=== PATIENT | female | born 1935 | race African-American/Black ===

== ENCOUNTER 2019-05-11 07:42 | Inpatient (IN) | payer MEDICARE ==
[~2019-05-11] VITALS: Ht 165.1 cm; Wt 61.0 kg
[2019-05-11 09:11] LABS: Basophils # (auto) 0 uL; Eosinophils # (auto) 0.1 uL; Hemoglobin 14.7 g/dL (12.2-16.2)
[2019-05-11 09:13] LABS: Basophils % (auto) 0.5 % (0.0-2.0); Hematocrit 44.7 % (36.0-46.0); Lymphocytes # (auto) 1.2 uL; Lymphocytes % (auto) 18.3 % (10.0-50.0); Mean Corpuscular Hemoglobin 23.7 pg (28.0-32.0); Mean Corpuscular Hgb Conc. 32.8 g/dL (32.0-36.0); Mean Corpuscular Volume 72.4 fL (80.0-100.0); Monocytes # (auto) 0.4 uL; Monocytes % (auto) 5.5 % (0.0-12.0); Neutrophils # (auto) 4.8 uL; Neutrophils % (auto) 74.7 % (37.0-80.0); Nucleated Red Blood Cells % 0.1 %; Platelet Count (auto) 109 10^3/uL (140-450); Red Blood Cells 6.18 10^6/uL (4.0-5.20); Red Cell Distribution Width 16.4 % (11.8-14.3); White Blood Cell 6.5 10^3/uL (4.4-10.8)
[2019-05-11 09:30] LABS: Calcium 9.4 mg/dL (8.5-10.1); Potassium 3.3 mmol/L (3.5-5.1)
[2019-05-11 09:34] LABS: INR 1.04 (0.9-1.15); Partial Thromboplastin Time 27.1 sec (23.64-32.05)
[2019-05-11 09:38] LABS: BUN/Creatinine Ratio 16.3; Bilirubin, Total 1.2 mg/dL (0.2-1.0); Total Protein 7.6 g/dL (6.4-8.2)
[2019-05-11 09:45] LABS: Urine Bacteria NONE SEEN /hpf (None Seen); Urine Blood Negative /uL (Negative); Urine Specific Gravity 1.012 (1.001-1.035); Urine WBC 1 /hpf (0 - 5)
[2019-05-11 12:22] LABS: Magnesium 2.8 mg/dL (1.6-2.6)
[2019-05-11] MEDS ORDERED: POTASSIUM CHL 20 Meq TABLET PO ONE (13:15)
[2019-05-11] MEDS ORDERED: ASPirin-EC 81 mg tab PO ONE (13:15)
[2019-05-11] MEDS ORDERED: NITROGLYCERIN 0.4 MG SL TAB SL PRN (14:15)
[2019-05-11] MEDS ORDERED: MORPHINE SULF INJ 2 MG/ML SYRINGE 1ML IV PRN ×2 (14:15)
[2019-05-11] MEDS ORDERED: ACETAMINOPHEN 500 MG TAB PO PRN (14:15)
[2019-05-11] MEDS ORDERED: ONDANSETRON HCL 4 MG/2 ML VIAL IV PRN (14:15)
[2019-05-11] MEDS: METOCLOPRAMIDE HCL 10 MG TAB PO SCH ×2 (15:24→21:57)
[2019-05-11] MEDS: SODIUM CHLORIDE 0.9% 1,000 ML IV SCH (15:24)
[2019-05-11] MEDS: cefTRIAXone 1GM/50ML D5W 50 ML IV SCH (15:24)
[2019-05-11 16:00] VITALS: BP 159/80
--- NOTE | 2019-05-11 16:00 | NUR ---
MS admit from [facility] admitted to tele/MS after SBAR received. Patient oriented to ORALIA SHAIKH RN primary RN, unit, room, bed, and unit policies regarding patient care and visiting hours. Patient is on room air, respirations even and unlabored. Patient denies pain at this time. Reviewed plan of care with patient, patient verbalized understanding. Bed in low and locked position, call light within reach. Will continue to monitor Q1 hour and PRN.
--- NOTE | 2019-05-11 16:20 | NUR ---
Patient ambulated Patient ambulated to restroom, gait steady. Patient tolerated well. Will continue to monitor Q1 hour and PRN.
--- NOTE | 2019-05-11 16:50 | NUR ---
POM Patients medications taken down to pharmacy. Addendum: 05/11/19 at 1849 by ORALIA SHAIKH RN RN Patient states these are not her current home medications, states she "grabbed the wrong ones." Instructed patient to have family bring in current list of medications. Patient verbalized understanding.
[2019-05-11 17:00] VITALS: BP 159/80
[2019-05-11] MEDS: DOCUSATE SOD 100 MG CAP PO PRN (18:55)
--- NOTE | 2019-05-11 19:10 | NUR ---
Closing Note Report given to geological engineer RN. No signs or symptoms if distress noted at this time.
--- NOTE | 2019-05-11 19:30 | NUR ---
Opening Shift Note Assumed care of patient, awake and alert. No S/S of distress/SOB or pain. Insructed on POC and to callfor assist PRN, will continue to monitor for changes Q1hr and PRN. Witnessed patient ambulating to bathroom and back to bed independently with steady gait. Fall and safety precautions in place. Call light within reach.
--- NOTE | 2019-05-11 21:20 | NUR ---
HOSPITALIST Spoke with on-call hospitalist, Dr. Restrepo, regarding patient's request for neuropathy medication. New orders received, will input and carry out
[2019-05-11] MEDS: DONEPEZIL HYDROCHLORIDE 5 MG TAB PO SCH (21:56)
[2019-05-11] MEDS: PREGABALIN CAPSULE 75 MG CAP PO SCH (21:56)
[2019-05-11] MEDS: METOPROLOL TARTRATE 50 MG TAB PO SCH (21:57)
[2019-05-11 22:15] VITALS: BP 141/74
[2019-05-12] MEDS: SODIUM CHLORIDE 0.9% 1,000 ML IV SCH ×3 (03:09→21:44)
[2019-05-12 05:30] VITALS: BP 148/74
[2019-05-12 05:37] LABS: Basophils # (auto) 0.1 uL; Eosinophils # (auto) 0.2 uL; Monocytes # (auto) 0.5 uL
[2019-05-12] MEDS: METOCLOPRAMIDE HCL 10 MG TAB PO SCH ×3 (05:46→21:44)
[2019-05-12 05:49] LABS: Basophils % (auto) 0.6 % (0.0-2.0); Eosinophils % (auto) 2.4 % (0.0-7.0); Lymphocytes # (auto) 1.7 uL; Lymphocytes % (auto) 21.5 % (10.0-50.0); Mean Corpuscular Hemoglobin 23.8 pg (28.0-32.0); Mean Corpuscular Hgb Conc. 32.4 g/dL (32.0-36.0); Mean Corpuscular Volume 73.5 fL (80.0-100.0); Monocytes % (auto) 6.3 % (0.0-12.0); Neutrophils # (auto) 5.6 uL; Neutrophils % (auto) 69.2 % (37.0-80.0); Nucleated Red Blood Cells % 0.2 %; Platelet Count (auto) 112 10^3/uL (140-450); Red Blood Cells 5.86 10^6/uL (4.0-5.20); Red Cell Distribution Width 16.1 % (11.8-14.3); White Blood Cell 8.1 10^3/uL (4.4-10.8)
[2019-05-12 05:59] LABS: BUN/Creatinine Ratio 12.2; Calcium 8.9 mg/dL (8.5-10.1)
--- NOTE | 2019-05-12 07:17 | NUR ---
OPENING SHIFT NOTE Assumed care patient comfortably resting in bed, AOx4. No S/S of distress or SOB noted. Patient verbalizes pain 3/10, no pain medication needed per patient. Bed in low position, locked, side rails x2 up, call light within reach. Patient updated on POC for the day and to call for assistance as needed, patient verbalized understanding.
[2019-05-12] MEDS: cefTRIAXone 1GM/50ML D5W 50 ML IV SCH (08:49)
[2019-05-12] MEDS: DOCUSATE SOD 100 MG CAP PO PRN ×2 (08:49→22:09)
[2019-05-12 09:00] VITALS: BP 154/78
[2019-05-12] MEDS: PREGABALIN CAPSULE 75 MG CAP PO SCH ×2 (09:50→21:44)
[2019-05-12] MEDS: METOPROLOL TARTRATE 50 MG TAB PO SCH ×2 (09:50→22:00)
--- NOTE | 2019-05-12 11:35 | NUR ---
MEDICATION RECONCILIATION Patient unable to provide list of home medications. Per patient, she lives home alone and has no one available that can help bring her medications in.
[2019-05-12 13:00] VITALS: BP 171/71
[2019-05-12] MEDS: cloNIDine HCL 0.1 MG TAB PO PRN ×2 (14:14→22:09)
[2019-05-12 17:00] VITALS: BP 122/71
[2019-05-12] MEDS: LACTULOSE 20Gm/30ML SOLN PO PRN (17:15)
[2019-05-12] MEDS ORDERED: PANT40TA2 PO (18:28)
[2019-05-12] MEDS ORDERED: LACT10SO70 PO (18:28)
[2019-05-12] MEDS ORDERED: AML5T PO (18:28)
[2019-05-12] MEDS ORDERED: DOCU-94 PO (18:28)
[2019-05-12] MEDS ORDERED: DOCU240C3 PO (18:28)
[2019-05-12] MEDS ORDERED: PREG50CA PO (18:28)
[2019-05-12] MEDS ORDERED: METO-169 PO (18:28)
--- NOTE | 2019-05-12 19:30 | NUR ---
Opening Shift Note Assumed care of patient, awake and alert. No S/S of distress/SOB or pain. Insructed on POC and to callfor assist PRN, will continue to monitor for changes Q1hr and PRN. Fall and safety precautions in place. Call light within reach. Patient informed of MD order for urine culture. Specimen cup at bedside, patient verbalized understanding and agreed to call when sample is ready.
--- NOTE | 2019-05-12 20:45 | NUR ---
URINE SAMPLE Urine culture collected per MD order and sent to lab via bullet
[2019-05-12] MEDS: DONEPEZIL HYDROCHLORIDE 5 MG TAB PO SCH (21:44)
[2019-05-12 21:59] VITALS: BP 165/72
[2019-05-13 05:00] VITALS: BP 130/64
[2019-05-13] MEDS: LACTULOSE 20Gm/30ML SOLN PO PRN (05:47)
[2019-05-13] MEDS: METOCLOPRAMIDE HCL 10 MG TAB PO SCH ×3 (05:47→20:51)
[2019-05-13] MEDS: SODIUM CHLORIDE 0.9% 1,000 ML IV SCH ×2 (05:48→16:15)
[2019-05-13 05:59] LABS: Basophils # (auto) 0.1 uL; Eosinophils # (auto) 0.2 uL; Hemoglobin 12.7 g/dL (12.2-16.2); Lymphocytes # (auto) 1.3 uL; Monocytes # (auto) 0.4 uL; Nucleated Red Blood Cells % 0.1 %
[2019-05-13 06:01] LABS: Eosinophils % (auto) 3.7 % (0.0-7.0); Hematocrit 38.8 % (36.0-46.0); Lymphocytes % (auto) 21.2 % (10.0-50.0); Mean Corpuscular Hgb Conc. 32.6 g/dL (32.0-36.0); Mean Corpuscular Volume 73.5 fL (80.0-100.0); Monocytes % (auto) 7.1 % (0.0-12.0); Neutrophils # (auto) 4.2 uL; Platelet Count (auto) 100 10^3/uL (140-450); Red Blood Cells 5.28 10^6/uL (4.0-5.20); Red Cell Distribution Width 16.4 % (11.8-14.3); White Blood Cell 6.2 10^3/uL (4.4-10.8)
[2019-05-13 06:27] LABS: Calcium 8.5 mg/dL (8.5-10.1); Potassium 3.6 mmol/L (3.5-5.1)
[2019-05-13 06:29] LABS: BUN/Creatinine Ratio 13.4
--- NOTE | 2019-05-13 07:30 | NUR ---
OPENING SHIFT NOTE Assumed care patient comfortably sleeping in bed. Bed in low position, locked, call light within reach, side rails x2 up. No S/S of distress/SOB/ or pain noted at this time. White board updated with POC for the day. Will continue care.
[2019-05-13 08:39] VITALS: BP 155/72
[2019-05-13] MEDS: cefTRIAXone 1GM/50ML D5W 50 ML IV SCH (09:11)
[2019-05-13] MEDS: METOPROLOL TARTRATE 50 MG TAB PO SCH ×2 (09:12→22:00)
[2019-05-13] MEDS: PREGABALIN CAPSULE 75 MG CAP PO SCH ×2 (09:12→20:51)
[2019-05-13 13:00] VITALS: BP 153/63
[2019-05-13] MEDS ORDERED: LACTULOSE 20Gm/30ML SOLN PO ONE (14:00)
--- NOTE | 2019-05-13 15:22 | NUR ---
Assessment Pt is an 83 yr old alert and oriented female. Pt lives alone and named her son, Omar, as her emergency contact at [phone]. Pt uses no DME, and is ambulatory and independent with ADL's. Pt's primary is Dr. Mai, has AD, and gets income. 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 Pt will d/c home upon medical clearance with HH resumption. Pt is understanding and agreeable to d/c plan. No other needs assessed. Addendum: 05/13/19 at 1526 by ORLANDO LEMA Amended: Links added.
[2019-05-13] MEDS: HYOSCYAMINE SULF 0.125 MG ODT TAB PO PRN (15:42)
[2019-05-13 17:00] VITALS: BP 148/75
[2019-05-13 17:25] VITALS: BP 148/75
--- NOTE | 2019-05-13 19:30 | NUR ---
Opening Shift Note Assumed care of patient, awake and alert. No S/S of distress/SOB or pain. Insructed on POC and to callfor assist PRN, will continue to monitor for changes Q1hr and PRN. Fall and safety precautions in place. Call light within reach.
[2019-05-13] MEDS: DONEPEZIL HYDROCHLORIDE 5 MG TAB PO SCH (20:51)
[2019-05-13] MEDS: POLYETHYLENE GLYCOL 17 GM PWDR PO PRN (20:53)
[2019-05-13 22:00] VITALS: BP 147/76
[2019-05-14] MEDS: SODIUM CHLORIDE 0.9% 1,000 ML IV SCH ×3 (02:41→22:18)
[2019-05-14 05:07] VITALS: BP 140/77
[2019-05-14] MEDS: METOCLOPRAMIDE HCL 10 MG TAB PO SCH ×3 (05:43→21:58)
[2019-05-14] MEDS: HYDROcodone-ACET 5/325MG TAB PO PRN ×2 (05:49→11:46)
[2019-05-14 06:24] LABS: Basophils # (auto) 0.1 uL; Eosinophils # (auto) 0.2 uL; Lymphocytes # (auto) 1.2 uL; Monocytes # (auto) 0.4 uL; Neutrophils # (auto) 4.3 uL; Nucleated Red Blood Cells % 0.1 %; White Blood Cell 6.2 10^3/uL (4.4-10.8)
[2019-05-14 06:26] LABS: Basophils % (auto) 0.9 % (0.0-2.0); Eosinophils % (auto) 3.1 % (0.0-7.0); Hematocrit 38.9 % (36.0-46.0); Hemoglobin 12.5 g/dL (12.2-16.2); Lymphocytes % (auto) 19.9 % (10.0-50.0); Mean Corpuscular Hemoglobin 23.5 pg (28.0-32.0); Mean Corpuscular Hgb Conc. 32.2 g/dL (32.0-36.0); Mean Corpuscular Volume 73.1 fL (80.0-100.0); Neutrophils % (auto) 69.1 % (37.0-80.0); Platelet Count (auto) 89 10^3/uL (140-450); Red Blood Cells 5.32 10^6/uL (4.0-5.20); Red Cell Distribution Width 16.5 % (11.8-14.3)
[2019-05-14 06:37] LABS: Potassium 3.6 mmol/L (3.5-5.1)
[2019-05-14 06:43] LABS: BUN/Creatinine Ratio 12.5
[2019-05-14 06:44] LABS: Calcium 8.6 mg/dL (8.5-10.1)
--- NOTE | 2019-05-14 07:30 | NUR ---
Opening Shift Note Assumed care of patient, awake and alert. No S/S of distress/SOB or pain. Instructed on POC and to call for assist PRN, will continue to monitor for changes Q1hr and PRN.
[2019-05-14 08:54] VITALS: BP 143/72
[2019-05-14] MEDS: PREGABALIN CAPSULE 75 MG CAP PO SCH ×2 (09:43→21:56)
[2019-05-14] MEDS: cefTRIAXone 1GM/50ML D5W 50 ML IV SCH (09:43)
[2019-05-14] MEDS: METOPROLOL TARTRATE 50 MG TAB PO SCH ×2 (09:44→21:58)
--- NOTE | 2019-05-14 12:15 | NUR ---
DOCTOR PIRES AT BEDSIDE.
[2019-05-14 13:00] VITALS: BP 149/74
[2019-05-14] MEDS: cloNIDine HCL 0.1 MG TAB PO PRN (16:47)
[2019-05-14 16:57] VITALS: BP 178/82
--- NOTE | 2019-05-14 19:35 | NUR ---
Opening Shift Note Report received from day shift RN. Assumed care of patient, awake and A&O x4. No S/S of distress/SOB noted and patient denies pain at this time. Instructed on POC and to call for assist PRN, will continue to monitor for changes Q1hr and PRN. Bed locked and left in the lowest position. Call light within reach.
[2019-05-14] MEDS: DONEPEZIL HYDROCHLORIDE 5 MG TAB PO SCH (21:56)
[2019-05-14 22:00] VITALS: BP 138/71
[2019-05-14] MEDS: POLYETHYLENE GLYCOL 17 GM PWDR PO PRN (22:03)
[2019-05-15] MEDS: HYOSCYAMINE SULF 0.125 MG ODT TAB PO PRN (00:35)
[2019-05-15] MEDS: HYDROcodone-ACET 5/325MG TAB PO PRN (01:21)
[2019-05-15] MEDS: cloNIDine HCL 0.1 MG TAB PO PRN (04:47)
[2019-05-15 05:00] VITALS: BP 176/75
[2019-05-15 05:43] LABS: Basophils # (auto) 0 uL; Eosinophils # (auto) 0.2 uL; Hemoglobin 13.3 g/dL (12.2-16.2); Monocytes # (auto) 0.4 uL
[2019-05-15 05:48] LABS: Basophils % (auto) 0.8 % (0.0-2.0); Hematocrit 41.8 % (36.0-46.0); Lymphocytes # (auto) 1.6 uL; Lymphocytes % (auto) 26.4 % (10.0-50.0); Mean Corpuscular Hemoglobin 23.9 pg (28.0-32.0); Mean Corpuscular Hgb Conc. 31.9 g/dL (32.0-36.0); Mean Corpuscular Volume 74.9 fL (80.0-100.0); Monocytes % (auto) 6.7 % (0.0-12.0); Neutrophils # (auto) 3.8 uL; Neutrophils % (auto) 63.1 % (37.0-80.0); Nucleated Red Blood Cells % 0.1 %; Platelet Count (auto) 94 10^3/uL (140-450); Red Blood Cells 5.59 10^6/uL (4.0-5.20); Red Cell Distribution Width 16.8 % (11.8-14.3); White Blood Cell 6.1 10^3/uL (4.4-10.8)
[2019-05-15 06:08] LABS: Potassium 3.7 mmol/L (3.5-5.1)
[2019-05-15 06:14] LABS: BUN/Creatinine Ratio 13.9; Calcium 9.1 mg/dL (8.5-10.1)
[2019-05-15] MEDS: METOCLOPRAMIDE HCL 10 MG TAB PO SCH ×3 (06:14→21:41)
[2019-05-15 08:00] VITALS: BP 144/66
[2019-05-15 09:33] VITALS: BP 147/71
[2019-05-15] MEDS: METOPROLOL TARTRATE 50 MG TAB PO SCH ×2 (10:00→21:43)
[2019-05-15] MEDS: cefTRIAXone 1GM/50ML D5W 50 ML IV SCH (10:02)
[2019-05-15] MEDS: PREGABALIN CAPSULE 75 MG CAP PO SCH ×2 (10:02→21:40)
[2019-05-15] MEDS: SODIUM CHLORIDE 0.9% 1,000 ML IV SCH ×2 (10:05→17:35)
--- NOTE | 2019-05-15 11:00 | NUR ---
PATIENT AMBULATED PATIENT REQUESTED TO AMBULATE DOWN HALLWAY. PATIENT AMBULATING WITHOUT COMPLAINT OR SIGNS OF WEAKNESS AND DISTRESS. WILL CONTINUE TO MONITOR AND OBSERVE.
--- NOTE | 2019-05-15 11:24 | NUR ---
PATIENT RETURNED TO BED PATIENT RETURNED TO BED. SITTING UP A&OX4. RESPIRATIONS EVEN AND NON-LABORED WITHOUT COMPLAINT OR SIGNS OF DISTRESS. BED IS IN LOWEST POSITION, LOCKED, WITH RAILS UP X2. WILL CONTINUE TO MONITOR.
[2019-05-15 14:43] VITALS: BP 143/83
--- NOTE | 2019-05-15 15:07 | NUR ---
Nutrition Assessment Notes Please refer to link for full assessment notes. Est energy needs: 8020-8675 kcals (23-25 kcal/kgBW) d/t pt age Est protein needs: 62-68 gms/day (1.0-1.1 gm/kgBW) d/t pt age Will continue to monitor and reassess prn. Addendum: 05/15/19 at [address] Amended: Links added.
[2019-05-15 16:51] VITALS: BP 155/75
--- NOTE | 2019-05-15 18:41 | NUR ---
SPOKE TO PATIENT ABOUT ENEMA THAT WAS ORDERED FOR CONSTIPATION. PATIENT STATED THAT SHE DOES NOT WANT TO POOP ALL NIGHT LONG AND WOULD RATHER HAVE IT DONE IN THE MORNING. EDUCATION PROVIDED. WILL CONTINUE TO MONITOR.
[2019-05-15] MEDS: PANTOPRAZOLE 40 MG TAB PO SCH (18:44)
[2019-05-15] MEDS: DONEPEZIL HYDROCHLORIDE 5 MG TAB PO SCH (21:40)
[2019-05-15 22:00] VITALS: BP 156/86
[2019-05-16] MEDS: HYDROcodone-ACET 5/325MG TAB PO PRN (01:16)
[2019-05-16] MEDS: SODIUM CHLORIDE 0.9% 1,000 ML IV SCH ×2 (04:15→14:15)
[2019-05-16] MEDS: cloNIDine HCL 0.1 MG TAB PO PRN (04:53)
[2019-05-16 05:00] VITALS: BP 165/85
[2019-05-16] MEDS: METOCLOPRAMIDE HCL 10 MG TAB PO SCH ×2 (05:49→14:00)
[2019-05-16 07:04] LABS: Eosinophils # (auto) 0.2 uL; Lymphocytes # (auto) 1.4 uL; Monocytes # (auto) 0.4 uL; Neutrophils # (auto) 3.9 uL
[2019-05-16 07:06] LABS: Basophils # (auto) 0 uL; Basophils % (auto) 0.7 % (0.0-2.0); Eosinophils % (auto) 2.9 % (0.0-7.0); Hematocrit 38.8 % (36.0-46.0); Hemoglobin 12.8 g/dL (12.2-16.2); Lymphocytes % (auto) 23.4 % (10.0-50.0); Mean Corpuscular Hgb Conc. 33.1 g/dL (32.0-36.0); Mean Corpuscular Volume 72.3 fL (80.0-100.0); Nucleated Red Blood Cells % 0.2 %; Platelet Count (auto) 93 10^3/uL (140-450); Red Blood Cells 5.36 10^6/uL (4.0-5.20); Red Cell Distribution Width 16.4 % (11.8-14.3); White Blood Cell 5.9 10^3/uL (4.4-10.8)
[2019-05-16 07:08] LABS: INR 1.13 (0.9-1.15)
[2019-05-16 07:16] LABS: BUN/Creatinine Ratio 17.4; Potassium 3.7 mmol/L (3.5-5.1)
--- NOTE | 2019-05-16 07:30 | NUR ---
Received patient in bed, NS drip on hold because of elevated blood pressure as per report from assistant casino shift manager RN.
--- NOTE | 2019-05-16 08:10 | NUR ---
Patient is uncomfortable having the tap water enema ordered. Patient asked if there's a medication for constipation instead of getting the tap water enema. Explained to patient she has orders for Miralax for constipation, walking would also help to induce bowel movement. Patient stated she wants to take Miralax.
[2019-05-16] MEDS: cefTRIAXone 1GM/50ML D5W 50 ML IV SCH (08:14)
[2019-05-16] MEDS: POLYETHYLENE GLYCOL 17 GM PWDR PO PRN (08:20)
--- NOTE | 2019-05-16 08:20 | NUR ---
Miralax Powder mixed with juice given to patient for constipation.
[2019-05-16 09:00] VITALS: BP 137/59
[2019-05-16] MEDS: METOPROLOL TARTRATE 50 MG TAB PO SCH (09:38)
[2019-05-16] MEDS: PREGABALIN CAPSULE 75 MG CAP PO SCH (09:38)
[2019-05-16] MEDS: PANTOPRAZOLE 40 MG TAB PO SCH (09:38)
--- NOTE | 2019-05-16 09:41 | NUR ---
No bowel movement yet. Patient refused the tap water enema at this time.
--- NOTE | 2019-05-16 10:04 | NUR ---
Patient had a bowel movement in the bathroom. Moderate, soft to loose brown stools noted on the toilet bowl. Patient will not have the tap water enema.
--- NOTE | 2019-05-16 12:25 | NUR ---
Dr. Blackburn at bedside. MD to discharge the patient, to write prescription for Miralax.
[2019-05-16 12:50] VITALS: BP 138/61
[2019-05-16 12:54] VITALS: BP 137/59
--- NOTE | 2019-05-16 13:25 | NUR ---
Asked patient who will pick her up going home. Patient stated she will take care of it, requested to be wheeled out going to the hospital pharmacy.
--- NOTE | 2019-05-16 13:45 | NUR ---
Discharge instructions given as ordered. Encourage to follow up with PMD as instructed. All questions and concerns addressed. Patient verbalized understanding. Medication reconciliation form completed and copy given to patient. Home medications held in Pharmacy returned to patient. IV removed with catheter intact, pressure dressing applied. Patient taken to [facility] via wheelchair with all personal belongings, accompanied by staff. No distress noted at time of departure.
== END 2019-05-16 13:45 | disposition home or self-care (01) | DRG 392 ==
LOC: ER 07:42 → OVERFLOW 07:43 → WEST WING 16:07
PROVIDERS: ADMIT Nurse Practitioner Acute Care; ATTEND Internal Medicine
DX: K59.00 Constipation, unspecified (principal); N30.00 Acute cystitis without hematuria; K57.30 Diverticulosis of large intestine without perforation or abscess without bleeding; E87.6 Hypokalemia; D69.6 Thrombocytopenia, unspecified; N20.0 Calculus of kidney; I10 Essential (primary) hypertension; K58.9 Irritable bowel syndrome, unspecified; I25.10 Atherosclerotic heart disease of native coronary artery without angina pectoris; F03.90 Unspecified dementia, unspecified severity, without behavioral disturbance, psychotic disturbance, mood disturbance, and anxiety; R16.0 Hepatomegaly, not elsewhere classified; Z90.13 Acquired absence of bilateral breasts and nipples; Z90.710 Acquired absence of both cervix and uterus; Z85.3 Personal history of malignant neoplasm of breast; Z83.3 Family history of diabetes mellitus; Z82.49 Family history of ischemic heart disease and other diseases of the circulatory system; Z88.5 Allergy status to narcotic agent; Z79.899 Other long term (current) drug therapy
CPT/HCPCS: 36415; 71046; 74176; 76856; 80048; 80053; 81001; 82150; 83690; 83735; 84443; 84484; 85025; 85610; 85730; 87086; 93005; 93925; 93971; 96361; 96365; G0378; J0696

== ENCOUNTER 2019-06-29 17:09 | Emergency (ER) | payer MEDICARE, OTHER ==
[~2019-06-29] VITALS: Ht 165.1 cm; Wt 57.6 kg
[~2019-06-29 17:09] MED LIST: AML5T PO; DOCU-94 PO; DOCU240C3 PO; LACT10SO70 PO; METO-169 PO; PANT40TA2 PO; PREG50CA PO
[2019-06-29 17:37] VITALS: BP 138/83
[2019-06-29 17:43] LABS: Basophils # (auto) 0.1 10 ^3/uL (0-0.2); Hemoglobin 13.8 g/dL (12.2-16.2); Monocytes # (auto) 0.4 10 ^3/uL (0-1.3)
[2019-06-29 17:45] LABS: Basophils % (auto) 0.9 % (0.0-2.0); Eosinophils # (auto) 0.2 10 ^3/uL (0-0.8); Eosinophils % (auto) 2.9 % (0.0-7.0); Hematocrit 43.3 % (36.0-46.0); Lymphocytes # (auto) 2.2 10 ^3/uL (0.4-5.4); Mean Corpuscular Hemoglobin 23.1 pg (28.0-32.0); Mean Corpuscular Hgb Conc. 31.9 g/dL (32.0-36.0); Mean Corpuscular Volume 72.3 fL (80.0-100.0); Monocytes % (auto) 4.9 % (0.0-12.0); Neutrophils # (auto) 5.5 10 ^3/uL (1.6-8.6); Neutrophils % (auto) 65.3 % (37.0-80.0); Nucleated Red Blood Cells % 0.3 %; Platelet Count (auto) 129 10^3/uL (140-450); Red Blood Cells 5.98 10^6/uL (4.0-5.20); Red Cell Distribution Width 17.1 % (11.8-14.3); White Blood Cell 8.5 10^3/uL (4.4-10.8)
[2019-06-29 17:58] LABS: INR 1.07 (0.9-1.15); Partial Thromboplastin Time 26.2 sec (23.64-32.05)
[2019-06-29] MEDS ORDERED: MAGNESIUM CITRATE SOLUTION 300 ML BTL PO ONE (18:00)
[2019-06-29 18:02] LABS: Albumin 3.8 g/dL (3.4-5.0); Magnesium 2.7 mg/dL (1.6-2.6)
[2019-06-29 18:05] LABS: BUN/Creatinine Ratio 11.8; Bilirubin, Total 0.4 mg/dL (0.2-1.0); Calcium 9.4 mg/dL (8.5-10.1); Total Protein 7.6 g/dL (6.4-8.2)
== END 2019-06-29 18:09 | disposition home or self-care (01) ==
LOC: ER 17:09
DX: K59.00 Constipation, unspecified (principal); E78.5 Hyperlipidemia, unspecified; I10 Essential (primary) hypertension; I25.10 Atherosclerotic heart disease of native coronary artery without angina pectoris; Z88.5 Allergy status to narcotic agent
CPT/HCPCS: 36415; 80053; 83735; 85025; 85610; 85730

== ENCOUNTER 2019-07-28 12:12 | Emergency (ER) | payer MEDICARE, OTHER ==
[~2019-07-28] VITALS: Ht 165.1 cm; Wt 56.2 kg
[2019-07-28 12:35] VITALS: BP 177/83
== END 2019-07-28 14:12 | disposition home or self-care (01) ==
LOC: ER 12:12
DX: K21.9 Gastro-esophageal reflux disease without esophagitis (principal); E78.5 Hyperlipidemia, unspecified; I10 Essential (primary) hypertension; Z90.710 Acquired absence of both cervix and uterus; Z88.6 Allergy status to analgesic agent

== ENCOUNTER → 2019-10-03 | Emergency (ER) | payer MEDICARE, OTHER ==
[~2019-10-03] VITALS: Ht 165.1 cm; Wt 58.1 kg
[2019-10-03 10:06] LABS: Basophils # (auto) 0.1 10 ^3/uL (0-0.2); Mean Corpuscular Volume 73.6 fL (80.0-100.0)
[2019-10-03 10:07] LABS: Basophils % (auto) 0.9 % (0.0-2.0); Eosinophils # (auto) 0.3 10 ^3/uL (0-0.8); Eosinophils % (auto) 3.3 % (0.0-7.0); Lymphocytes # (auto) 1.6 10 ^3/uL (0.4-5.4); Lymphocytes % (auto) 20.3 % (10.0-50.0); Mean Corpuscular Hemoglobin 23.3 pg (28.0-32.0); Mean Corpuscular Hgb Conc. 31.7 g/dL (32.0-36.0); Monocytes # (auto) 0.4 10 ^3/uL (0-1.3); Monocytes % (auto) 5.2 % (0.0-12.0); Neutrophils # (auto) 5.5 10 ^3/uL (1.6-8.6); Neutrophils % (auto) 70.3 % (37.0-80.0); Nucleated Red Blood Cells % 0.1 %; Platelet Count (auto) 145 10^3/uL (140-450); Red Blood Cells 5.57 10^6/uL (4.0-5.20); White Blood Cell 7.8 10^3/uL (4.4-10.8)
[2019-10-03 10:22] LABS: Salicylate < 1.7 mg/dL (2.8-20.0)
[2019-10-03 10:23] LABS: Potassium 3.6 mmol/L (3.5-5.1)
[2019-10-03 10:30] LABS: Acetaminophen < 2.0 ug/mL (10-30)
[2019-10-03 10:31] LABS: Albumin 3.6 g/dL (3.4-5.0); BUN/Creatinine Ratio 11.2; Bilirubin, Total 0.8 mg/dL (0.2-1.0); Calcium 9.1 mg/dL (8.5-10.1); Total Protein 6.9 g/dL (6.4-8.2)
[2019-10-03 11:18] LABS: Urine Bacteria FEW /hpf (None Seen); Urine Blood Negative /uL (Negative); Urine Specific Gravity 1.006 (1.001-1.035); Urine WBC <1 /hpf (0 - 5)
[2019-10-03 11:45] LABS: Alcohol, Urine < 3.0 mg/dL (0-10); Amphetamine Screen, Urine NEGATIVE (NEGATIVE); Benzodiazephine Screen, Urine NEGATIVE (NEGATIVE); Cannabinoid Screen, Urine NEGATIVE (NEGATIVE)
[2019-10-03 11:52] LABS: Barbiturate Scree,Urine NEGATIVE (NEGATIVE); Cocaine Screen, Urine NEGATIVE (NEGATIVE); Opiate Scree,Urine NEGATIVE (NEGATIVE); Phencyclidine Screen, Urine NEGATIVE (NEGATIVE)
[2019-10-03 12:40] VITALS: BP 176/79
== END | disposition home or self-care (01) ==
LOC: ER 08:49
DX: T50.991A Poisoning by other drugs, medicaments and biological substances, accidental (unintentional), initial encounter (principal); F41.9 Anxiety disorder, unspecified; E78.5 Hyperlipidemia, unspecified; I10 Essential (primary) hypertension; Z90.710 Acquired absence of both cervix and uterus; Z88.6 Allergy status to analgesic agent; Y92.9 Unspecified place or not applicable
CPT/HCPCS: 36415; 71045; 80053; 80307; 80320; 80329; 81001; 85025; 93005

== ENCOUNTER 2019-11-03 10:12 | Emergency (ER) | payer MEDICARE, OTHER ==
[~2019-11-03] VITALS: Ht 165.1 cm; Wt 56.9 kg
[2019-11-03 11:07] LABS: Basophils # (auto) 0.1 10 ^3/uL (0-0.2); Eosinophils # (auto) 0.2 10 ^3/uL (0-0.8); Hemoglobin 13.3 g/dL (12.2-16.2); Monocytes # (auto) 0.3 10 ^3/uL (0-1.3); Monocytes % (auto) 4.2 % (0.0-12.0)
[2019-11-03 11:10] LABS: Basophils % (auto) 0.7 % (0.0-2.0); Eosinophils % (auto) 2.1 % (0.0-7.0); Lymphocytes % (auto) 12.7 % (10.0-50.0); Mean Corpuscular Hemoglobin 23.2 pg (28.0-32.0); Mean Corpuscular Hgb Conc. 31.8 g/dL (32.0-36.0); Mean Corpuscular Volume 73.1 fL (80.0-100.0); Neutrophils # (auto) 6.2 10 ^3/uL (1.6-8.6); Neutrophils % (auto) 80.3 % (37.0-80.0); Nucleated Red Blood Cells % 0.1 %; Platelet Count (auto) 175 10^3/uL (140-450); Red Blood Cells 5.74 10^6/uL (4.0-5.20); Red Cell Distribution Width 16.5 % (11.8-14.3); White Blood Cell 7.8 10^3/uL (4.4-10.8)
[2019-11-03 11:30] LABS: Albumin 3.7 g/dL (3.4-5.0); Calcium 9.5 mg/dL (8.5-10.1); Potassium 3.8 mmol/L (3.5-5.1)
[2019-11-03 11:35] LABS: BUN/Creatinine Ratio 10.2; Bilirubin, Total 0.8 mg/dL (0.2-1.0); Total Protein 7.2 g/dL (6.4-8.2)
[2019-11-03 13:00] VITALS: BP 158/80
== END 2019-11-03 13:12 | disposition home or self-care (01) ==
LOC: ER 10:12
DX: R10.9 Unspecified abdominal pain (principal); I25.10 Atherosclerotic heart disease of native coronary artery without angina pectoris; E78.5 Hyperlipidemia, unspecified; I10 Essential (primary) hypertension; Z79.899 Other long term (current) drug therapy; Z88.5 Allergy status to narcotic agent; Z90.710 Acquired absence of both cervix and uterus
CPT/HCPCS: 36415; 74176; 80053; 85025

== ENCOUNTER 2020-05-07 12:23 | Emergency (ER) | payer MEDICARE, OTHER ==
[~2020-05-07] VITALS: Ht 157.5 cm; Wt 49.9 kg
[2020-05-07 14:16] LABS: Urine Bacteria FEW /hpf (None Seen); Urine Blood Negative /uL (Negative); Urine Hyaline Cast FEW /lpf (0 - 2); Urine Mucus FEW (None Seen); Urine Specific Gravity 1.031 (1.001-1.035); Urine WBC 3 /hpf (0 - 5)
[2020-05-07 14:21] VITALS: BP 161/94
[2020-05-07] MEDS ORDERED: cefTRIAXone SOD 1,000 MG VL IM ONE (14:30)
== END 2020-05-07 15:37 | disposition home or self-care (01) ==
LOC: ER 12:23
DX: N39.0 Urinary tract infection, site not specified (principal); B37.3 Candidiasis of vulva and vagina; E11.9 Type 2 diabetes mellitus without complications; I10 Essential (primary) hypertension; Z90.710 Acquired absence of both cervix and uterus; Z88.6 Allergy status to analgesic agent
CPT/HCPCS: 81001; 87210; 96372; 99283; J0696

== ENCOUNTER 2020-05-13 11:46 | Emergency (ER) | payer MEDICARE, OTHER ==
[~2020-05-13] VITALS: Ht 165.1 cm; Wt 51.7 kg
[2020-05-13 14:02] LABS: Urine Bacteria FEW /hpf (None Seen); Urine Blood Negative /uL (Negative); Urine Hyaline Cast FEW /lpf (0 - 2); Urine Mucus FEW (None Seen); Urine WBC 3 /hpf (0 - 5)
[2020-05-13 14:18] VITALS: BP 156/82
== END 2020-05-13 14:37 | disposition home or self-care (01) ==
LOC: ER 11:46
DX: R16.0 Hepatomegaly, not elsewhere classified (principal); R10.84 Generalized abdominal pain; E78.5 Hyperlipidemia, unspecified; I10 Essential (primary) hypertension; Z90.710 Acquired absence of both cervix and uterus; Z88.6 Allergy status to analgesic agent
CPT/HCPCS: 74176; 81001

== ENCOUNTER 2020-10-13 17:50 | Emergency (ER) | payer MEDICARE, OTHER ==
[~2020-10-13] VITALS: Ht 165.1 cm; Wt 54.4 kg
[~2020-10-13 17:50] MED LIST changes: -METO-169 PO; +METO-289 PO
[2020-10-13 17:55] VITALS: BP 118/60
== END 2020-10-13 19:07 | disposition left against medical advice (07) ==
LOC: ER 17:50
DX: R10.30 Lower abdominal pain, unspecified (principal); Z53.21 Procedure and treatment not carried out due to patient leaving prior to being seen by health care provider

== ENCOUNTER 2020-10-22 13:58 | Emergency (ER) | payer MEDICARE, OTHER ==
[~2020-10-22] VITALS: Ht 165.1 cm; Wt 53.5 kg
[2020-10-22 15:17] LABS: Basophils # (auto) 0.1 10 ^3/uL (0-0.2); Eosinophils # (auto) 0.2 10 ^3/uL (0-0.8); Mean Corpuscular Hemoglobin 23.7 pg (28.0-32.0)
[2020-10-22 15:19] LABS: Basophils % (auto) 1.2 % (0.0-2.0); Eosinophils % (auto) 1.6 % (0.0-7.0); Hematocrit 40.5 % (36.0-46.0); Hemoglobin 13.3 g/dL (12.2-16.2); Lymphocytes # (auto) 1.6 10 ^3/uL (0.4-5.4); Lymphocytes % (auto) 16.5 % (10.0-50.0); Mean Corpuscular Hgb Conc. 32.8 g/dL (32.0-36.0); Mean Corpuscular Volume 72.2 fL (80.0-100.0); Monocytes # (auto) 0.3 10 ^3/uL (0-1.3); Monocytes % (auto) 3.4 % (0.0-12.0); Neutrophils # (auto) 7.6 10 ^3/uL (1.6-8.6); Neutrophils % (auto) 77.3 % (37.0-80.0); Nucleated Red Blood Cells % 0.1 %; Red Blood Cells 5.61 10^6/uL (4.0-5.20); Red Cell Distribution Width 16.6 % (11.8-14.3); White Blood Cell 9.8 10^3/uL (4.4-10.8)
[2020-10-22 15:39] LABS: Albumin 3.9 g/dL (3.4-5.0); Calcium 9.3 mg/dL (8.5-10.1); Potassium 4.1 mmol/L (3.5-5.1)
[2020-10-22 15:42] LABS: Bilirubin, Total 0.7 mg/dL (0.2-1.0); Total Protein 7.6 g/dL (6.4-8.2)
[2020-10-22 17:27] VITALS: BP 135/87
== END 2020-10-22 17:29 | disposition home or self-care (01) ==
LOC: ER 13:58
DX: K59.00 Constipation, unspecified (principal); I10 Essential (primary) hypertension; I25.10 Atherosclerotic heart disease of native coronary artery without angina pectoris; E78.5 Hyperlipidemia, unspecified; Z90.710 Acquired absence of both cervix and uterus; Z79.899 Other long term (current) drug therapy; Z88.5 Allergy status to narcotic agent
CPT/HCPCS: 36415; 74176; 80053; 85025; 93005

== ENCOUNTER 2021-05-01 14:09 | Emergency (ER) | payer MEDICARE, OTHER ==
[~2021-05-01] VITALS: Ht 167.6 cm; Wt 49.9 kg
[2021-05-01 15:56] VITALS: BP 113/62
== END 2021-05-01 18:25 | disposition home or self-care (01) ==
LOC: ER 14:09
DX: N20.0 Calculus of kidney (principal); R80.9 Proteinuria, unspecified; D18.03 Hemangioma of intra-abdominal structures
CPT/HCPCS: 74176; 81002

== ENCOUNTER 2021-07-04 14:54 | Emergency (ER) | payer MEDICARE, OTHER ==
[~2021-07-04] VITALS: Ht 162.6 cm; Wt 54.9 kg
[2021-07-04 15:53] LABS: Basophils # (auto) 0.1 10 ^3/uL (0-0.2); Eosinophils # (auto) 0.2 10 ^3/uL (0-0.8); Lymphocytes # (auto) 1.5 10 ^3/uL (0.4-5.4); Monocytes # (auto) 0.4 10 ^3/uL (0-1.3)
[2021-07-04 15:55] LABS: Basophils % (auto) 1.2 % (0.0-2.0); Eosinophils % (auto) 2.2 % (0.0-7.0); Hematocrit 39.7 % (36.0-46.0); Hemoglobin 12.8 g/dL (12.2-16.2); Lymphocytes % (auto) 18.9 % (10.0-50.0); Mean Corpuscular Hgb Conc. 32.4 g/dL (32.0-36.0); Monocytes % (auto) 4.8 % (0.0-12.0); Neutrophils # (auto) 5.9 10 ^3/uL (1.6-8.6); Neutrophils % (auto) 72.9 % (37.0-80.0); Nucleated Red Blood Cells % 0.1 %; Red Blood Cells 5.59 10^6/uL (4.0-5.20); Red Cell Distribution Width 16.1 % (11.8-14.3)
[2021-07-04 16:56] VITALS: BP 166/69
== END 2021-07-04 17:01 | disposition home or self-care (01) ==
LOC: ER 14:54
DX: K92.1 Melena (principal); I10 Essential (primary) hypertension; I25.10 Atherosclerotic heart disease of native coronary artery without angina pectoris; E78.5 Hyperlipidemia, unspecified; Z90.710 Acquired absence of both cervix and uterus; Z79.899 Other long term (current) drug therapy; Z88.5 Allergy status to narcotic agent
CPT/HCPCS: 36415; 85025

== ENCOUNTER 2021-11-13 21:30 | Inpatient (IN) | payer MEDICARE, OTHER ==
[~2021-11-13] VITALS: Ht 160 cm; Wt 53.4 kg
[2021-11-13 23:02] LABS: Basophils # (auto) 0.1 10 ^3/uL (0-0.2); Eosinophils # (auto) 0.1 10 ^3/uL (0-0.8); Monocytes # (auto) 0.7 10 ^3/uL (0-1.3); Red Cell Distribution Width 18.3 % (11.8-14.3)
[2021-11-13 23:13] LABS: Basophils % (auto) 0.6 % (0.0-2.0); Eosinophils % (auto) 0.6 % (0.0-7.0); Hematocrit 45.2 % (36.0-46.0); Hemoglobin 14.1 g/dL (12.2-16.2); Lymphocytes # (auto) 1.4 10 ^3/uL (0.4-5.4); Lymphocytes % (auto) 13.7 % (10.0-50.0); Mean Corpuscular Hemoglobin 22.4 pg (28.0-32.0); Mean Corpuscular Hgb Conc. 31.2 g/dL (32.0-36.0); Monocytes % (auto) 6.2 % (0.0-12.0); Neutrophils # (auto) 8.4 10 ^3/uL (1.6-8.6); Neutrophils % (auto) 78.9 % (37.0-80.0); Nucleated Red Blood Cells % 0.1 %; Red Blood Cells 6.29 10^6/uL (4.0-5.20); White Blood Cell 10.6 10^3/uL (4.4-10.8)
[2021-11-13 23:47] LABS: Albumin 4.3 g/dL (3.4-5.0); BUN/Creatinine Ratio 17.8; Calcium 9.8 mg/dL (8.5-10.1); Potassium 3.6 mmol/L (3.5-5.1)
[2021-11-13 23:50] LABS: Bilirubin, Total 1.2 mg/dL (0.2-1.0); Total Protein 7.7 g/dL (6.4-8.2)
[2021-11-14] MEDS ORDERED: ENOXAPARIN SOD 60 MG/0.6 ML SYRINGE SC ONE
[2021-11-14] MEDS ORDERED: NITROGLYCERIN 0.4 MG SL TAB SL PRN (02:00)
[2021-11-14] MEDS ORDERED: cefTRIAXone 1GM/50ML D5W 50 ML IV ONE (02:00)
[2021-11-14] MEDS ORDERED: ATORVASTATIN 20 MG TAB PO ONE (02:00)
[2021-11-14] MEDS ORDERED: MORPHINE SULFATE INJ 2 MG/ml SYRG IV PRN (02:00)
[2021-11-14] MEDS ORDERED: LORazepam 0.5 MG TAB PO PRN (02:00)
[2021-11-14] MEDS ORDERED: ASPirin-EC 325mg tab PO ONE (02:00)
[2021-11-14] MEDS ORDERED: ALUM & MAG HYDROX-SIMETH LIQ(MAALOX) 30 ML PO PRN (02:00)
[2021-11-14] MEDS ORDERED: ACETAMINOPHEN 325 MG TAB PO PRN (02:00)
[2021-11-14 03:39] LABS: Urine Bacteria NONE SEEN /hpf (None Seen); Urine Blood 3+ /uL (Negative); Urine Mucus FEW (None Seen); Urine Specific Gravity 1.024 (1.001-1.035); Urine WBC 5 /hpf (0 - 5)
[2021-11-14] MEDS ORDERED: diphenhdrAMINE HCL 25 MG CAP PO ONE (03:45)
[2021-11-14] MEDS: SODIUM CHLOR 0.9% PF (SALINE LOCK) 10ML VIAL/SYR IV SCH ×3 (06:01→22:41)
[2021-11-14] MEDS: PANTOPRAZOLE 40 MG TAB PO SCH ×3 (06:42→22:49)
[2021-11-14] MEDS ORDERED: ADENOSINE 53 MG in GIVE UN-DILUTED 0 ML IV STA (09:19)
[2021-11-14] MEDS: ASPirin 81 mg TAB PO SCH (09:40)
[2021-11-14] MEDS: ATORVASTATIN 20 MG TAB PO SCH (09:40)
[2021-11-14] MEDS ORDERED: ASPirin-EC 81 mg tab PO SCH (10:00)
[2021-11-14 10:50] VITALS: BP 141/81
[2021-11-14 12:18] LABS: Free T4 (Free Thyroxine) 1.41 ng/dL (0.89-1.76)
[2021-11-14 12:19] LABS: Folate (Folic Acid) 19.48 ng/mL (5.38-24)
[2021-11-14] MEDS: cefTRIAXone 1GM/50ML D5W 50 ML IV SCH (21:14)
[2021-11-14] MEDS ORDERED: ATORVASTATIN 20 MG TAB PO SCH (22:00)
[2021-11-14 22:40] VITALS: BP 92/69
[2021-11-14] MEDS ORDERED: GABA300C10 PO (22:46)
[2021-11-15 05:00] VITALS: BP 108/65
[2021-11-15 05:29] LABS: Basophils # (auto) 0.1 10 ^3/uL (0-0.2); Basophils % (auto) 0.7 % (0.0-2.0); Eosinophils # (auto) 0.2 10 ^3/uL (0-0.8); Hemoglobin 12.5 g/dL (12.2-16.2); Lymphocytes # (auto) 1.6 10 ^3/uL (0.4-5.4); Mean Corpuscular Volume 71.3 fL (80.0-100.0); Monocytes # (auto) 0.6 10 ^3/uL (0-1.3); White Blood Cell 6.9 10^3/uL (4.4-10.8)
[2021-11-15 05:32] LABS: Eosinophils % (auto) 3.3 % (0.0-7.0); Hematocrit 39.5 % (36.0-46.0); Lymphocytes % (auto) 23.3 % (10.0-50.0); Mean Corpuscular Hemoglobin 22.4 pg (28.0-32.0); Mean Corpuscular Hgb Conc. 31.5 g/dL (32.0-36.0); Monocytes % (auto) 8.6 % (0.0-12.0); Neutrophils # (auto) 4.4 10 ^3/uL (1.6-8.6); Neutrophils % (auto) 64.1 % (37.0-80.0); Nucleated Red Blood Cells % 0.1 %; Red Blood Cells 5.55 10^6/uL (4.0-5.20); Red Cell Distribution Width 17.7 % (11.8-14.3)
[2021-11-15] MEDS: SODIUM CHLOR 0.9% PF (SALINE LOCK) 10ML VIAL/SYR IV SCH ×3 (05:36→21:50)
[2021-11-15 06:28] LABS: Albumin 3.3 g/dL (3.4-5.0); BUN/Creatinine Ratio 17.9; Bilirubin, Total 0.7 mg/dL (0.2-1.0); Calcium 8.7 mg/dL (8.5-10.1); Magnesium 2.4 mg/dL (1.6-2.6); Potassium 3.2 mmol/L (3.5-5.1); Total Protein 6.1 g/dL (6.4-8.2)
[2021-11-15 07:40] VITALS: BP 126/78
[2021-11-15 08:05] VITALS: BP 126/78
[2021-11-15] MEDS: PANTOPRAZOLE 40 MG TAB PO SCH ×2 (09:01→21:49)
[2021-11-15] MEDS: ASPirin 81 mg TAB PO SCH (09:01)
[2021-11-15] MEDS: ATORVASTATIN 20 MG TAB PO SCH (09:02)
[2021-11-15] MEDS: HYDROmorphone HCL 2 MG/ML VL/or syr IV PRN ×2 (09:05→20:20)
[2021-11-15] MEDS ORDERED: POTASSIUM CHL 20 Meq TABLET PO ONE (10:00)
[2021-11-15] MEDS ORDERED: AMLO-496 PO (13:29)
[2021-11-15] MEDS ORDERED: DOCU-94 PO (13:41)
[2021-11-15] MEDS ORDERED: LACT10SO70 PO (13:41)
[2021-11-15 17:36] VITALS: BP 146/78
[2021-11-15] MEDS ORDERED: ENOXAPARIN SOD 30 MG/0.3 ML SYRINGE SC ONE (18:00)
[2021-11-15 20:00] VITALS: BP 129/69
[2021-11-15] MEDS: cefTRIAXone 1GM/50ML D5W 50 ML IV SCH (21:49)
[2021-11-15 22:00] VITALS: BP 129/69
[2021-11-16] VITALS (7 sets, daily range): BP systolic 126–164; BP diastolic 62–108
[2021-11-16 06:07] LABS: RPR Non Reactive (Non Reactive)
[2021-11-16] MEDS: SODIUM CHLOR 0.9% PF (SALINE LOCK) 10ML VIAL/SYR IV SCH ×2 (06:30→07:57)
[2021-11-16] MEDS: HYDROmorphone HCL 2 MG/ML VL/or syr IV PRN ×2 (07:57→18:01)
[2021-11-16] MEDS: ATORVASTATIN 20 MG TAB PO SCH (09:55)
[2021-11-16] MEDS: PANTOPRAZOLE 40 MG TAB PO SCH ×2 (09:55→21:20)
[2021-11-16] MEDS: ENOXAPARIN SOD 30 MG/0.3 ML SYRINGE SC SCH (09:55)
[2021-11-16] MEDS: ASPirin 81 mg TAB PO SCH (09:55)
[2021-11-16] MEDS ORDERED: TAMSULOSIN HYDROCHLORIDE 0.4 MG CAP PO ONE (13:45)
[2021-11-16] MEDS ORDERED: ENOXAPARIN SOD 30 MG/0.3 ML SYRINGE SC ONE (14:00)
[2021-11-16] MEDS ORDERED: TAMSULOSIN HYDROCHLORIDE 0.4 MG CAP PO SCH (18:00)
[2021-11-16] MEDS: cefTRIAXone 1GM/50ML D5W 50 ML IV SCH (21:20)
[2021-11-17] MEDS: SODIUM CHLOR 0.9% PF (SALINE LOCK) 10ML VIAL/SYR IV SCH ×3 (00:18→14:18)
[2021-11-17] MEDS: HYDROmorphone HCL 2 MG/ML VL/or syr IV PRN ×2 (00:20→14:34)
[2021-11-17] MEDS: HYDROcodone-ACET 5/325MG TAB PO PRN ×2 (03:05→08:39)
[2021-11-17 05:03] VITALS: BP 150/75
[2021-11-17 07:02] LABS: Albumin 3.5 g/dL (3.4-5.0); BUN/Creatinine Ratio 15.9; Calcium 9.4 mg/dL (8.5-10.1); Magnesium 2.3 mg/dL (1.6-2.6); Potassium 3.9 mmol/L (3.5-5.1)
[2021-11-17 07:04] LABS: Bilirubin, Total 0.4 mg/dL (0.2-1.0); Total Protein 6.5 g/dL (6.4-8.2)
[2021-11-17 09:00] VITALS: BP 152/72
[2021-11-17] MEDS: ASPirin 81 mg TAB PO SCH (09:32)
[2021-11-17] MEDS: ATORVASTATIN 20 MG TAB PO SCH (09:32)
[2021-11-17] MEDS: PANTOPRAZOLE 40 MG TAB PO SCH (09:32)
[2021-11-17] MEDS: ENOXAPARIN SOD 30 MG/0.3 ML SYRINGE SC SCH (09:32)
[2021-11-17] MEDS ORDERED: ENOXAPARIN SOD 30 MG/0.3 ML SYRINGE SC SCH (10:00)
[2021-11-17] MEDS ORDERED: HALOPERIDOL LACTATE 5 MG/ML INJ VIAL IM PRN (12:15)
[2021-11-17] MEDS ORDERED: HALOPERIDOL LACTATE 5 MG/ML INJ VIAL ONE (12:25)
[2021-11-17 12:31] VITALS: BP 143/76
[2021-11-17 15:04] VITALS: BP 152/72
== END 2021-11-17 16:11 | DRG 280 ==
LOC: EDUNIT# 21:30 → EDBD 21:30 → ER 21:33 → TELE 11-14 01:53 → TELE-WESTW 11-14 20:42
PROVIDERS: ADMIT Internal Medicine; ATTEND Internal Medicine
DX: I21.4 Non-ST elevation (NSTEMI) myocardial infarction (principal); N17.0 Acute kidney failure with tubular necrosis; N30.00 Acute cystitis without hematuria; B37.3 Candidiasis of vulva and vagina; F03.90 Unspecified dementia, unspecified severity, without behavioral disturbance, psychotic disturbance, mood disturbance, and anxiety; I10 Essential (primary) hypertension; I25.10 Atherosclerotic heart disease of native coronary artery without angina pectoris; N20.0 Calculus of kidney; Z20.822 Contact with and (suspected) exposure to COVID-19; E78.5 Hyperlipidemia, unspecified; K59.00 Constipation, unspecified; F41.9 Anxiety disorder, unspecified; Z88.5 Allergy status to narcotic agent; Z79.899 Other long term (current) drug therapy; Z82.49 Family history of ischemic heart disease and other diseases of the circulatory system; Z90.710 Acquired absence of both cervix and uterus
CPT/HCPCS: 36415; 70450; 74176; 76705; 78452; 80053; 81001; 82607; 82746; 83735; 84439; 84443; 84484; 85025; 86592; 87070; 87086; 93005; 93017; 93306; 96365; 96367; 96372; 96376; G0378; J0153; J0696